=== PATIENT | female | born 2000 | race Caucasian/White ===

== ENCOUNTER 2018-08-06 12:17 | Emergency (ER) | payer MEDICAID ==
[~2018-08-06] VITALS: Ht 160 cm; Wt 63.0 kg
[2018-08-06 12:48] VITALS: BP 102/61
[2018-08-06] MEDS ORDERED: IBUPROFEN 600MG TABLET PO ONE (15:15)
== END 2018-08-06 15:34 | disposition home or self-care (01) ==
LOC: ER 12:17
DX: R51 Headache (principal)
CPT/HCPCS: 81025; 99282

== ENCOUNTER 2019-08-31 16:10 | Emergency (ER) | payer MEDICAID ==
[~2019-08-31] VITALS: Ht 162.6 cm; Wt 62.0 kg
[2019-08-31 16:23] VITALS: BP 110/63
[2019-08-31] MEDS ORDERED: TETANUS, DIPHTHERIA, PERTUSSIS VAC/PF 0.5ML (>7YR OLD) IM ONE (17:45)
[2019-08-31] MEDS ORDERED: BACITRACIN ZINC OINT UDPKT TOP ONE (17:45)
== END 2019-08-31 18:15 | disposition home or self-care (01) ==
LOC: ER 16:10
DX: S81.852A Open bite, left lower leg, initial encounter (principal); W54.0XXA Bitten by dog, initial encounter; Y93.89 Activity, other specified; Y92.89 Other specified places as the place of occurrence of the external cause
CPT/HCPCS: 90471; 90715; 99283